=== PATIENT | male | born 1995 | race African-American/Black ===

== ENCOUNTER 2017-05-28 11:32 | Emergency (ER) | payer SELFPAY ==
[2017-05-28 12:59] LABS: NEGATIVE OBC STREP NEG; POSITIVE OBC STREP POS
== END 2017-05-28 13:22 | disposition home or self-care (01) ==
LOC: ER 11:32
DX: J20.8 Acute bronchitis due to other specified organisms (principal); J02.8 Acute pharyngitis due to other specified organisms; B97.89 Other viral agents as the cause of diseases classified elsewhere
CPT/HCPCS: 71046; 87070; 87880; 99285-25